=== PATIENT | female | born 1945 | race Caucasian/White ===

== ENCOUNTER 2024-02-21 12:04 | Emergency (ER) | payer MEDICARE, BC, SELFPAY ==
[2024-02-21 12:08] VITALS: BP 149/73; PULSE 72; TEMP 36.6; O2SAT 97; BMI 32.4
--- NOTE | 2024-02-21 12:12 | PC.NURSE ---
patient reports she believes she has and abscess near her rectum. began noticing a sore area 5 days ago and now has an enlarged area that is painful and warm. patient states it is painful to sit. patient states she has never had this before
--- NOTE | 2024-02-21 12:26 | ED_ITS ---
HPI - Skin/Abscess/Foreign Bdy General Chief complaint: Skin/Abscess/Foreign Body Stated complaint: POSSIBLE BOIL ON RECTUM Time Seen by Provider: 02/21/24 12:13 Source: patient Mode of arrival: walk-in Limitations: no limitations History of Present Illness HPI narrative: The patient is coming to the ER after she noted this abscess on her right buttock area just by her rectum almost 3 to 4 days ago, she mentioned that it is painful No fever chills no appetite changes and the patient have no other complaints Related Data Previous Rx's ?Medication ?Instructions ?Recorded cephalexin 500 mg capsule 500 mg PO Q8H 7 days #21 caps 02/21/24 doxycycline hyclate 100 mg capsule 100 mg PO BID 7 days #14 caps 02/21/24 Allergies Allergy/AdvReac Type Severity Reaction Status Date / Time No Known Drug Allergies Allergy Verified 02/21/24 12:08 Review of Systems ROS Status of ROS 10 or more systems reviewed and unremark able except as noted in history and below Exam Narrative Exam Narrative: Nurses notes and vital signs reviewed and patient is not hypoxic. General: Well-appearing and in no apparent distress. Skin: Warm, dry, no pallor noted. No rash. Head: Normocephalic, atraumatic. Neck: Supple, non-tender. Eye: Pupils are equal, round and EOMI. No scleral icterus. Ears, Nose, Mouth, and Throat: TM are clear, no nasal mucosal hypertrophy. Oral mucosa is moist, no posterior oropharynx erythema, uvula is mid-line Cardiovascular: Regular Rate and Rhythm without murmur, gallop or rub. Respiratory: No accessory muscle use or respiratory distress. Lungs are clear to auscultation, no wheezing, rales or rhonchi Chest Wall: no tenderness Back: No midline thoracic or lumbar vertebral tenderness. No CVA tenderness Musculoskeletal: normal ROM, no calf or popliteal tenderness, no lower extremity edema/swelling GI: Abdomen is soft, non-distended. Normal bowel sounds. No masses appreciated. No tenderness to palpation. No rebound, guarding, or rigidity noted. Neurological: A&O x4. No cranial nerve dysfunction observed. No truncal ataxia. Moves all extremities. Sensation intact. Psychiatric: Cooperative and interactive. Normal mood and affect. The patient skin examination showed that she have a almost 2x 3 cm area of redness with some fluctuation of the middle, no surrounding redness no induration other than the area of redness The patient abscess is just at the buttock area and not nearby the rectum Constitutional Vital Signs, click to edit/add: Last Vital Signs Temp 97.8 F 02/21/24 12:08 Pulse 72 02/21/24 12:08 Resp 17 02/21/24 12:08 BP 149/73 H 02/21/24 12:08 Pulse Ox 97 02/21/24 12:08 O2 Del Method Room Air 02/21/24 12:08 Course Vital Signs Vital signs: Vital Signs Temperature 97.8 F 02/21/24 12:08 Pulse Rate 72 02/21/24 12:08 Respiratory Rate 17 02/21/24 12:08 Blood Pressure 149/73 H 02/21/24 12:08 Pulse Oximetry 97 02/21/24 12:08 Oxygen Delivery Method Room Air 02/21/24 12:08 Temperature 97.8 F 02/21/24 12:08 Pulse Rate 72 02/21/24 12:08 Respiratory Rate 17 02/21/24 12:08 Blood Pressure 149/73 H 02/21/24 12:08 Pulse Oximetry 97 02/21/24 12:08 Oxygen Delivery Method Room Air 02/21/24 12:08 MDM - Skin/Abscess/Foreign Bdy MDM Narrative Medical decision making narrative: After cleaning the area thoroughly with the normal saline and Betadine The area was infiltrated with 1% lidocaine almost 2 to 3 cc The patient then had the large bore needle aspiration of almost 3 to 4 cc of pus Patient tolerated the procedure well Pressure applied after that and the patient to continue sitz bath at home in addition to antibiotic doxycycline and Keflex provided Patient instructed about monitoring in case of any pain increased swelling or fever she is to come back to the ER The patient is to follow up with primary care physician in next 2-3 days or to return to the emergency department should any of the signs or symptoms worsen or new symptoms develop. The patient agrees with the following Diagnosis and Treatment plan and the patient will be discharged home. Discharge Plan Discharge Stand Alone Forms: Portal Instructions Chief Complaint: Skin/Abscess/Foreign Body Clinical Impression: Abscess Cellulitis Qualifiers: Site of cellulitis: buttock Qualified Code(s): L03.317 - Cellulitis of buttock Patient Disposition: Home, Self-Care Time of Disposition Decision: 13:01 Condition: Good Prescriptions / Home Meds: New cephalexin 500 mg capsule 500 mg PO Q8H 7 Days Qty: 21 0RF doxycycline hyclate 100 mg capsule 100 mg PO BID 7 Days Qty: 14 0RF Print Language: Faroese Instructions: Sitz Bath (DC), Rectal Abscess (ED) Referrals: CLARA MEEKS [Physician] - 1 week Discharge Date/Time: 02/21/24 13:20
[2024-02-21] MEDS: LIDOCAINE HCL 1% 100 MG/10 ML MDV INJ (12:30)
== END 2024-02-21 13:20 | disposition home or self-care (01) ==
PROVIDERS: Emergency Provider Emergency Medicine; PCP Family Medicine
DX: L02.31 Cutaneous abscess of buttock (principal)
CPT/HCPCS: 10160; 80053; 83605; 87070; 99284